=== PATIENT | female | born 1955 | race Caucasian/White ===

== ENCOUNTER 2019-03-05 06:29 | Day surgery (SDC) | payer SELFPAY ==
[2019-02-28 13:34] VITALS: BMI 24.7
[2019-03-05] MEDS ORDERED: ERYTHROMYCIN 0.5% OPHTHALMIC OINTMENT 3.5 GM TUBE ONE (07:09)
[2019-03-05] MEDS ORDERED: TETRACAINE 0.5% OPHTH SOLN 2 ML BOTTLE ONE (07:09)
[2019-03-05] MEDS ORDERED: POVIDONE-IODINE 5% OPHTHALMIC PREP 30 ML SOLUTION ONE (07:09)
[2019-03-05] MEDS ORDERED: LIDOCAINE 1%/EPI 1:100000 (20 ML MULTI DOSE VIAL) ONE ×2 (07:10)
[2019-03-05] MEDS ORDERED: PROPOFOL 20 ML ONE ×7 (07:13→10:51)
[2019-03-05] MEDS ORDERED: ceFAZolin SODIUM 1 GM VIAL ONE (07:13)
[2019-03-05] MEDS ORDERED: MIDAZOLAM HCL 2 MG/2 ML SINGLE DOSE VIAL ONE (07:14)
[2019-03-05] MEDS ORDERED: ONDANSETRON 4 MG/2 ML VIAL IVPUSH PRN (08:16)
[2019-03-05] MEDS ORDERED: oxyCODONE HCL 5 MG TABLET PO PRN ×2 (08:16)
[2019-03-05] MEDS ORDERED: LACTATED RINGERS SOLUTION 1,000 ML IV SCH (08:30)
[2019-03-05] MEDS ORDERED: ePHEDrine SULFATE 50 MG/1 ML AMPULE ONE (09:24)
[2019-03-05 12:48] VITALS: PULSE 84; TEMP 98.1
[2019-03-05 12:50] VITALS: BP 140/84
--- NOTE | 2019-03-05 15:22 | OP ---
DATE OF OPERATION: 03/05/2019 PREOPERATIVE DIAGNOSIS: Dermatochalasis bilateral upper lids, slight central depression and early A frame bilateral upper lids, fat prominence greatest centrally and nasally bilateral lower lids with lower lid laxity. SURGEON: Sergey Field MD ANESTHESIA: Local with sedation. COMPLICATIONS: None. ESTIMATED BLOOD LOSS: 5 mL. OPERATIVE REPORT: Patient brought to the operating room and placed on the operating room table. Vital signs monitored by Anesthesia. Tetracaine was placed in both eyes. The lid creases were marked symmetrically in the patient's chemehuevi lid crease and marked for symmetry with a caliper extending out to the temporal moraes, which had been noted preoperatively in the holding area. Superior ellipses were then demarcated by pinching the amount of skin that was shy of lash eversion. We were aiming for a very small tarsal platform. In respect due to preoperative photographs showing almost no tarsal platform in in youth, a small tarsal platform was sought. The pinch was marked with a marking pen, and symmetry was the goal. The lower lid fat prominences had been marked preoperatively in the holding area in the upright position. Patient was given intravenous sedation. Time-out was performed, and 2% Xylocaine, 1:100,000 epinephrine was then injected across the upper lid for a total of 3 mL in each upper lid. The patient was prepped and draped in the usual sterile fashion exposing both eyes after gentle massage for hemostasis, and the following procedures were performed bilaterally. The lid creases that were marked were incised symmetrically. The superior edge of the ellipses were incised, and the skin was removed with a Howard needle using a Jean scissor at the nasal end of the excision in order to avoid skin charring. Hemostasis was achieved with minimal cautery. The orbicularis was then widely opened from nasal to temporal, and the nasal fat pad was unroofed and released and from its fibrous adhesions to create a nasal pedicle. The central fat pad was exposed, and the nasal fat pad was transposed to the central eyelid suturing it to the undersurface of the orbicularis with a mattressed 6-0 Vicryl suture. The central fat pad was conservatively sculpted in order to give a smooth contour to the upper lid, and temporally the orbicularis was opened, and two 6-0 Vicryl sutures, I believe, were used temporally to create a brassiere suture supporting the temporal brow fat pad and accentuating the lid crease temporally in both eyelids. Antibiotic irrigation was used throughout the case. The wound was then closed with an interrupted and running 6-0 plain suture with plastic technique completing the upper blepharoplasty. Attention was turned to the lower lids. While the lids were being closed up in the upper lid, 1 mL of 2% lidocaine, 1:100,000 epinephrine was injected in each of the nasal central and temporal pockets through the conjunctivae down to the orbital rim, and massage was applied for hemostasis. A single-hand technique was now used to elevate the upper lid putting gentle pressure on the globe and placed to the lower lid causing the fat the prolapse. Conjunctivae were retracted over across the wound until the fat prolapsed. The nasal and central fat pockets were identified and meticulously dissected free of fibrous adhesions and capsule. The inferior oblique was identified on both eyelids and protected, and the nasal and central fat pockets were released until they moved freely underneath the inferior oblique. The arcus marginalis was now incised inferomedially, and the Lyndon retractor was used to elevate the orbicularis. [place] periosteal elevator was used to elevate the orbicularis off of the periosteum, and this was carried out beyond the tear trough nasally and centrally. Fat pockets were then secured with a 5-0 Prolene suture in a mattress fashion grabbing both the nasal and the central fat pockets and tying them beyond the nasojugal groove and through a piece of Telfa to transpose the fat, repositioning it. The fat was then sculpted as needed to give a smooth contour to the eyelid. The temporal fat pads were identified, and small amount of temporal fat was sculpted as well. The lids were then distracted superiorly, and good hemostasis was evident. Conjunctiva was closed with 2 interrupted 6-0 plain buried suture. Attention was now turned to the skin. A small amount of 2% Xylocaine, 1:100,000 epinephrine was injected below the lid crease on both lids. Time was allowed for hemostasis and then the skin patch was performed with smooth forceps removing a millimeter or two of skin on each eyelid, tailoring it as needed, and then closing this with a running 6-0 plain suture after hemostasis was obtained. Prior to closure, however, dissection was carried in the lateral canthal ligament down to the orbital rim, and a double-arm 5-0 Vicryl suture was passed from the temporal canthal tendon to the orbital rim internally to tighten the lower lid and perform a canthopexy. On the left side, this was closed with a single, buried 6-0 Vicryl suture. The right side did not need a Vicryl suture and then the wounds were closed with a running 6-0 plain suture in plastic technique. Erythromycin ointment was placed on all the sutures and in both eyes. The patient was taken to the recovery room in stable condition. SERGEY FIELD M.D. [id number]
== END 2019-03-05 12:40 | disposition home or self-care (01) ==
LOC: FASU 06:29
PROVIDERS: ATTEND Ophthalmology
PROC: 08SN0ZZ Reposition Right Upper Eyelid, Open Approach (ICD-10-PCS; 2019-03-05)
PROC: 08SP0ZZ Reposition Left Upper Eyelid, Open Approach (ICD-10-PCS; 2019-03-05)
PROC: 08SQ0ZZ Reposition Right Lower Eyelid, Open Approach (ICD-10-PCS; 2019-03-05)
PROC: 08SR0ZZ Reposition Left Lower Eyelid, Open Approach (ICD-10-PCS; principal; 2019-03-05 08:12)
DX: H02.831 Dermatochalasis of right upper eyelid (principal); H02.832 Dermatochalasis of right lower eyelid; H02.834 Dermatochalasis of left upper eyelid; H02.835 Dermatochalasis of left lower eyelid
CPT/HCPCS: 94760